=== PATIENT | female | born 1950 | race Caucasian/White ===

== ENCOUNTER 2018-04-03 12:15 | Emergency (ER) | payer OTHER ==
[~2018-04-03] VITALS: Ht 157.5 cm; Wt 91.9 kg
[~2018-04-03 12:15] MED LIST: ADULT LOW DOSE81 M1 PO; Benadryl PO; Coumadin Protocol PO; Cozaar PO; GLUCOPHAGE500 M1 PO; LIDODERM 5% P1 PATCH TP; Maalox, Mylanta PO; Miralax, Glycolax PO; Senokot S,Pericolace PO; TOPROL XL50 MG PO; TYLENOL REGULA325 MG PO; Theragran PO
[2018-04-03 14:25] LABS: HEMATOCRIT 35.6 % (36.0-46.0); HEMOGLOBIN 11.4 G/DL (11.9-15.5); MCH 30.7 PG (29.0-34.0); PLATELET COUNT 294 K/uL (156-360); RBC DIS.WIDTH-CV 13.7 % (11.8-14.6); RBC DIS.WIDTH-SD 48.4 % (39-53); RED BLOOD COUNT 3.71 M/uL (3.80-5.20)
[2018-04-03 14:30] VITALS: BP 123/64
[2018-04-03 14:33] LABS: CHLORIDE 108 mEq/L (99-109); POTASSIUM 4.1 mEq/L (3.7-5.4); SODIUM 142 mEq/L (136-147)
[2018-04-03 14:35] LABS: GLUCOSE 107 mg/dL (70-99)
[2018-04-03 14:39] LABS: CREATININE 0.9 mg/dL (0.6-1.3); GFR ESTIMATE (CALCULATED) > 59 mL/min/
[2018-04-03 14:40] LABS: UREA NITROGEN (BUN) 16 mg/dL (9-23)
[2018-04-03] MEDS ORDERED: BACTRIM,SEPT1 TABLET PO (16:47)
[2018-04-03] MEDS ORDERED: NORCO 5/3251 TABLET PO (16:47)
== END 2018-04-03 17:41 | disposition home or self-care (01) ==
LOC: EME 12:15
PROVIDERS: Physician Assistant
DX: L03.116 Cellulitis of left lower limb (principal); R60.0 Localized edema; Z86.718 Personal history of other venous thrombosis and embolism; Z79.82 Long term (current) use of aspirin; I10 Essential (primary) hypertension; E11.9 Type 2 diabetes mellitus without complications; Z79.84 Long term (current) use of oral hypoglycemic drugs
CPT/HCPCS: 80048; 85027; 93970; 99281; 99284

== ENCOUNTER 2018-04-07 19:08 | Observation (INO) | payer OTHER ==
[~2018-04-07] VITALS: Ht 157.5 cm; Wt 91.0 kg
[~2018-04-07 19:08] MED LIST changes: +BACTRIM,SEPT1 TABLET PO; +NORCO 5/3251 TABLET PO
[2018-04-07 20:02] LABS: APPEARANCE CLEAR ((CLEAR)); BILIRUBIN NEGATIVE; BLOOD MODERATE; COLOR YELLOW ((YELLOW)); GLUCOSE (STRIP) NEGATIVE; KETONES NEGATIVE; LEUKOCYTES TRACE; NITRITE NEGATIVE; PROTEIN (STRIP) NEGATIVE; SPECIFIC GRAVITY 1.008 (1.000-1.030); UROBILINOGEN 0.2 MG/DL (0.2-1.0)
[2018-04-07 20:05] LABS: HEMATOCRIT 34.2 % (36.0-46.0); HEMOGLOBIN 11.4 G/DL (11.9-15.5); MCH 31.1 PG (29.0-34.0); MCHC 33.3 G/DL (30.0-36.0); MCV 93.2 FL (83-99); PLATELET COUNT 337 K/uL (156-360); RBC DIS.WIDTH-CV 13.9 % (11.8-14.6); RBC DIS.WIDTH-SD 47.4 % (39-53); RED BLOOD COUNT 3.67 M/uL (3.80-5.20); WHITE BLOOD COUNT 6.5 K/uL (4.1-10.2)
[2018-04-07 20:19] LABS: ALBUMIN 3.9 g/dL (3.2-4.8); CHLORIDE 103 mEq/L (99-109); POTASSIUM 4.5 mEq/L (3.7-5.4); SODIUM 137 mEq/L (136-147)
[2018-04-07 20:20] LABS: BACTERIA 1+ /HPF; EPITHELIAL CELLS 2+ /HPF; MUCUS 1+ /LPF; RED BLOOD CELLS NONE SEEN /HPF (0-5); UCUL ADDED? NO; WHITE BLOOD CELLS 0-5 /HPF (0-5)
[2018-04-07 20:21] LABS: GLUCOSE 87 mg/dL (70-99); TOTAL PROTEIN 8.4 g/dL (6.4-8.3)
[2018-04-07 20:23] LABS: TOTAL BILIRUBIN 0.4 mg/dL (0.0-1.0)
[2018-04-07 20:25] LABS: ALKALINE PHOSPHATASE 88 IU/L (3-129); GFR ESTIMATE (CALCULATED) 34 mL/min/
[2018-04-07 20:26] LABS: AST (GOT) 20 IU/L (2-34); CREATININE 1.6 mg/dL (0.6-1.3)
[2018-04-07 20:28] LABS: ALT (GPT) 12 IU/L (3-49); UREA NITROGEN (BUN) 25 mg/dL (9-23)
[2018-04-08 01:29] VITALS: BP 141/67
[2018-04-08 07:57] VITALS: BP 147/91
[2018-04-08] MEDS ORDERED: NORCO 5/3251 TABLET PO (11:00)
[2018-04-08] MEDS ORDERED: BACTRIM,SEPT1 TABLET PO (11:00)
[2018-04-08] MEDS ORDERED: GLUCOPHAGE500 MG PO (11:00)
[2018-04-08] MEDS ORDERED: ASPIRIN325 MG PO (11:01)
[2018-04-08] MEDS ORDERED: DIOVAN40 MG PO (11:01)
[2018-04-08] MEDS ORDERED: [UNRECOGNIZED DRUG - OTHER] TP (11:02)
[2018-04-08] MEDS ORDERED: MYRBETRIQ25 MG PO (11:03)
[2018-04-08 12:21] VITALS: BP 140/70
[2018-04-08 16:18] VITALS: BP 127/62
[2018-04-09 00:11] VITALS: BP 170/74
[2018-04-09 05:18] VITALS: BP 168/87
[2018-04-09 05:59] LABS: BASOPHIL (%) 1.2 % (0-1); EOSINOPHIL COUNT 0.3 K/uL (0-0.3); HEMATOCRIT 31.6 % (36.0-46.0); IMMATURE GRANULOCYTE (%) 0.3 % (0.0-0.7); LYMPHOCYTE (%) 20.8 % (15-42); LYMPHOCYTE COUNT 0.7 K/uL (1.0-2.8); MCH 29.9 PG (29.0-34.0); MCHC 31.6 G/DL (30.0-36.0); MCV 94.6 FL (83-99); MONOCYTE (%) 14.5 % (3-12); MONOCYTE COUNT 0.5 K/uL (0-0.8); NEUTROPHIL (%) 55.2 % (45-76); NEUTROPHIL COUNT 1.9 K/uL (1.8-6.4); PLATELET COUNT 284 K/uL (156-360); RBC DIS.WIDTH-CV 14.2 % (11.8-14.6); RBC DIS.WIDTH-SD 49.8 % (39-53); RED BLOOD COUNT 3.34 M/uL (3.80-5.20); WHITE BLOOD COUNT 3.4 K/uL (4.1-10.2)
[2018-04-09 06:16] LABS: ALBUMIN 3.1 G/DL (3.2-4.8); ALKALINE PHOSPHATASE 60 IU/L (3-129); ALT (GPT) 8 IU/L (3-49); AST (GOT) 16 IU/L (2-34); CHLORIDE 107 MEQ/L (99-109); GLUCOSE 106 mg/dL (70-99); POTASSIUM 4.4 MEQ/L (3.7-5.4); SODIUM 138 MEQ/L (136-147); TOTAL BILIRUBIN 0.3 MG/DL (0.0-1.0); TOTAL PROTEIN 6.7 G/DL (6.4-8.3); UREA NITROGEN (BUN) 17 mg/dL (9-23)
[2018-04-09 06:28] LABS: GFR ESTIMATE (CALCULATED) 59 mL/min/
[2018-04-09 07:57] VITALS: BP 158/70
[2018-04-09 11:49] VITALS: BP 147/67
[2018-04-09 12:13] LABS: HEMOGLOBIN A1c (GLYCOHEMOGLOB) 6.5 % (Below 5.7)
[2018-04-09] MEDS ORDERED: KEFLEX500 MG PO (16:05)
[2018-04-09] MEDS ORDERED: QUETIAPINE FUMA25 MG PO (16:05)
[2018-04-09] MEDS ORDERED: KETOCONAZOLE60 GM TP (16:05)
[2018-04-09] MEDS ORDERED: JANUVIA100 MG PO (16:05)
[2018-04-09] MEDS ORDERED: LOSARTAN POTASS25 MG PO (16:06)
== END 2018-04-09 16:56 | disposition home or self-care (01) ==
LOC: EME 19:08 → EDOF 23:52 → 4SOUTH 23:52 → EDOF 23:52 → ENRESERV 23:57 → 4SOUTH 04-08 01:02
PROVIDERS: Hospitalist; Internal Medicine
DX: L03.116 Cellulitis of left lower limb (principal); S80.821A Blister (nonthermal), right lower leg, initial encounter; N17.9 Acute kidney failure, unspecified; T37.0X5A Adverse effect of sulfonamides, initial encounter; D64.9 Anemia, unspecified; I10 Essential (primary) hypertension; F29 Unspecified psychosis not due to a substance or known physiological condition; E11.628 Type 2 diabetes mellitus with other skin complications; L89.892 Pressure ulcer of other site, stage 2; L30.8 Other specified dermatitis; R32 Unspecified urinary incontinence; K59.00 Constipation, unspecified; M19.90 Unspecified osteoarthritis, unspecified site; Z86.718 Personal history of other venous thrombosis and embolism; Z86.19 Personal history of other infectious and parasitic diseases; Z96.643 Presence of artificial hip joint, bilateral; Z82.49 Family history of ischemic heart disease and other diseases of the circulatory system; Z83.3 Family history of diabetes mellitus; Z88.5 Allergy status to narcotic agent
CPT/HCPCS: 74176; 80053; 81003; 82948; 83036; 83605; 85025; 85027; 87040; 97530 GP; 99281; 99285; A6212; A6260; G0378; G8978 GP CK; G8979 GP CI; G8980 CJ; G8987 GO CL; G8988 GO CK; G8989 GO CL; J0690; J1650; J3370; J7030

== ENCOUNTER 2018-05-02 16:08 | Inpatient (IN) | payer OTHER ==
[~2018-05-02] VITALS: Ht 157.5 cm; Wt 91.8 kg
[~2018-05-02 16:08] MED LIST changes: +ASPIRIN325 MG PO; +DIOVAN40 MG PO; +GLUCOPHAGE500 MG PO; +JANUVIA100 MG PO; +KEFLEX500 MG PO; +KETOCONAZOLE60 GM TP; +LOSARTAN POTASS25 MG PO; +MYRBETRIQ25 MG PO; +QUETIAPINE FUMA25 MG PO; +[UNRECOGNIZED DRUG - OTHER] TP
[2018-05-02 17:06] LABS: APPEARANCE TURBID ((CLEAR)); BILIRUBIN NEGATIVE; BLOOD SMALL; COLOR YELLOW ((YELLOW)); GLUCOSE (STRIP) NEGATIVE; KETONES NEGATIVE; LEUKOCYTES LARGE; NITRITE POSITIVE; PROTEIN (STRIP) 30; SPECIFIC GRAVITY 1.015 (1.000-1.030); UROBILINOGEN 0.2 MG/DL (0.2-1.0)
[2018-05-02 17:19] LABS: BACTERIA 2+ /HPF; EPITHELIAL CELLS 2+ /HPF; MUCUS NONE SEEN /LPF; RED BLOOD CELLS 0-5 /HPF (0-5); WHITE BLOOD CELLS TNTC /HPF (0-5)
[2018-05-02 17:52] LABS: BASOPHIL (%) 0.7 % (0-1); BASOPHIL COUNT 0.1 K/uL (0-0.1); EOSINOPHIL COUNT 0.3 K/uL (0-0.3); HEMATOCRIT 35.1 % (36.0-46.0); HEMOGLOBIN 11.2 G/DL (11.9-15.5); IMMATURE GRANULOCYTE (%) 0.4 % (0.0-0.7); MCH 30.2 PG (29.0-34.0); MCHC 31.9 G/DL (30.0-36.0); MCV 94.6 FL (83-99); MONOCYTE (%) 6.8 % (3-12); MONOCYTE COUNT 0.5 K/uL (0-0.8); NEUTROPHIL (%) 73.1 % (45-76); PLATELET COUNT 287 K/uL (156-360); RBC DIS.WIDTH-CV 13.7 % (11.8-14.6); RBC DIS.WIDTH-SD 47.7 % (39-53); RED BLOOD COUNT 3.71 M/uL (3.80-5.20); WHITE BLOOD COUNT 6.8 K/uL (4.1-10.2)
[2018-05-02 18:04] LABS: CHLORIDE 106 mEq/L (99-109); POTASSIUM 4.7 mEq/L (3.7-5.4); SODIUM 139 mEq/L (136-147)
[2018-05-02 18:06] LABS: GLUCOSE 99 mg/dL (70-99); TOTAL PROTEIN 8.4 g/dL (6.4-8.3)
[2018-05-02 18:08] LABS: TOTAL BILIRUBIN 0.4 mg/dL (0.0-1.0)
[2018-05-02 18:10] LABS: ALKALINE PHOSPHATASE 82 IU/L (3-129); CREATININE 1.5 mg/dL (0.6-1.3); GFR ESTIMATE (CALCULATED) 37 mL/min/
[2018-05-02 18:11] LABS: UREA NITROGEN (BUN) 20 mg/dL (9-23)
[2018-05-02 18:12] LABS: AST (GOT) 20 IU/L (2-34); DIRECT BILIRUBIN 0.2 mg/dL (0.0-0.3)
[2018-05-02 18:13] LABS: ALT (GPT) 11 IU/L (3-49)
[2018-05-02] MEDS ORDERED: COZAAR25 MG PO (18:39)
[2018-05-02] MEDS ORDERED: JANUVIA100 MG PO (18:39)
[2018-05-02 21:27] VITALS: BP 103/80
[2018-05-02 23:48] VITALS: BP 113/76
[2018-05-03 03:50] VITALS: BP 122/56
[2018-05-03 07:04] LABS: HEMATOCRIT 30.4 % (36.0-46.0); HEMOGLOBIN 9.6 G/DL (11.9-15.5); MCHC 31.6 G/DL (30.0-36.0); PLATELET COUNT 220 K/uL (156-360); RBC DIS.WIDTH-SD 48.5 % (39-53); WHITE BLOOD COUNT 5.9 K/uL (4.1-10.2)
[2018-05-03 07:36] VITALS: BP 138/63
[2018-05-03 08:20] LABS: ALBUMIN 2.9 G/DL (3.2-4.8); ALKALINE PHOSPHATASE 53 IU/L (3-129); ALT (GPT) 7 IU/L (3-49); AST (GOT) 12 IU/L (2-34); CHLORIDE 108 MEQ/L (99-109); CREATININE 1.2 MG/DL (0.6-1.3); GFR ESTIMATE (CALCULATED) 47 mL/min/; GLUCOSE 111 mg/dL (70-99); POTASSIUM 4.1 MEQ/L (3.7-5.4); SODIUM 140 MEQ/L (136-147); TOTAL BILIRUBIN 0.5 MG/DL (0.0-1.0); TOTAL PROTEIN 5.9 G/DL (6.4-8.3); UREA NITROGEN (BUN) 18 mg/dL (9-23)
[2018-05-03 10:55] LABS: HEMOGLOBIN A1c (GLYCOHEMOGLOB) 6.2 % (Below 5.7)
[2018-05-03 15:46] VITALS: BP 139/70
[2018-05-03 19:30] VITALS: BP 100/48
[2018-05-03 23:50] VITALS: BP 129/58
[2018-05-04 03:28] VITALS: BP 140/63
[2018-05-04 06:40] LABS: HEMATOCRIT 31.5 % (36.0-46.0); HEMOGLOBIN 9.9 G/DL (11.9-15.5); MCH 30.4 PG (29.0-34.0); MCHC 31.4 G/DL (30.0-36.0); MCV 96.6 FL (83-99); PLATELET COUNT 209 K/uL (156-360); RBC DIS.WIDTH-SD 49.9 % (39-53); RED BLOOD COUNT 3.26 M/uL (3.80-5.20); WHITE BLOOD COUNT 3.4 K/uL (4.1-10.2)
[2018-05-04 07:06] LABS: CHLORIDE 111 MEQ/L (99-109); CREATININE 1.1 MG/DL (0.6-1.3); GFR ESTIMATE (CALCULATED) 52 mL/min/; GLUCOSE 86 mg/dL (70-99); POTASSIUM 4.4 MEQ/L (3.7-5.4); SODIUM 143 MEQ/L (136-147); UREA NITROGEN (BUN) 16 mg/dL (9-23)
[2018-05-04 07:15] VITALS: BP 139/73
[2018-05-04 16:00] VITALS: BP 149/68
[2018-05-04 23:05] VITALS: BP 142/64
[2018-05-05 07:30] VITALS: BP 141/82
[2018-05-05] MEDS ORDERED: CEPHALEXIN500 MG PO (11:01)
[2018-05-05] MEDS ORDERED: FLORASTOR250 MG PO (11:02)
[2018-05-05] MEDS ORDERED: ZEASORB POWDER71 GM TP (11:05)
[2018-05-05] MEDS ORDERED: Zeasorb Antifungal T TP (11:06)
[2018-05-05 15:30] VITALS: BP 140/84
[2018-05-05 17:25] LABS: C DIFF TOXIN POSITIVE (NEGATIVE)
[2018-05-06 00:01] VITALS: BP 132/68
[2018-05-06 07:42] VITALS: BP 148/76
[2018-05-06] MEDS ORDERED: FLORASTOR250 MG PO (10:54)
[2018-05-06] MEDS ORDERED: VANCOCIN HCL125 MG PO (10:54)
== END 2018-05-06 17:19 | disposition home health service (06) | DRG 603 ==
LOC: EME 16:08 → EDOF 19:14 → 2EAST 19:14
PROVIDERS: Internal Medicine; Physician Assistant
DX: L03.115 Cellulitis of right lower limb (principal); L03.116 Cellulitis of left lower limb; A04.72 Enterocolitis due to Clostridium difficile, not specified as recurrent; N17.9 Acute kidney failure, unspecified; N39.0 Urinary tract infection, site not specified; B35.1 Tinea unguium; E11.42 Type 2 diabetes mellitus with diabetic polyneuropathy; E11.51 Type 2 diabetes mellitus with diabetic peripheral angiopathy without gangrene; L89.899 Pressure ulcer of other site, unspecified stage; I87.2 Venous insufficiency (chronic) (peripheral); I87.8 Other specified disorders of veins; E66.01 Morbid (severe) obesity due to excess calories; Z68.37 Body mass index [BMI] 37.0-37.9, adult; L30.4 Erythema intertrigo; I10 Essential (primary) hypertension; R53.1 Weakness; M21.962 Unspecified acquired deformity of left lower leg; M21.961 Unspecified acquired deformity of right lower leg; F32.9 Major depressive disorder, single episode, unspecified; M19.90 Unspecified osteoarthritis, unspecified site; Z86.718 Personal history of other venous thrombosis and embolism; Z96.643 Presence of artificial hip joint, bilateral
CPT/HCPCS: 71046; 80048; 80053; 80076; 81003; 82948; 83036; 83605; 85025; 85027; 87040; 87493; 93925; 97530 GP; 99281; 99285; J1644; J2543; J3370; J7030; J7050